=== PATIENT | male | born 1970 | race Caucasian/White ===

== ENCOUNTER → 2024-02-19 08:35 | Outpatient (REF) | payer OTHER, SELFPAY | LOC: RAD 08:35 | PROVIDERS: ATTENDING PHYSICIAN Physician Assistant; FAMILY PHYSICIAN Family Medicine | DX: E83.52 Hypercalcemia (principal); E34.9 Endocrine disorder, unspecified | CPT/HCPCS: 78071; A9500 ==

== ENCOUNTER → 2024-03-01 08:35 | Outpatient (REF) | payer OTHER, SELFPAY | LOC: RAD 08:35 | PROVIDERS: ATTENDING PHYSICIAN Physician Assistant; FAMILY PHYSICIAN Family Medicine | DX: E83.52 Hypercalcemia (principal); E34.9 Endocrine disorder, unspecified | CPT/HCPCS: 76536; 77080; 77081 ==

== ENCOUNTER 2024-04-16 06:07 | Day surgery (SDC) | payer OTHER, SELFPAY ==
[2024-04-12 09:03] LABS: Hematocrit 46.1 % (39.0-52.0); Hemoglobin 15.1 g/dL (13.0-18.0); Mean Corp Hgb Conc. 32.8 g/dL (33.0-37.0); Mean Corpuscular Hgb 30.9 pg (27.0-31.0); Mean Corpuscular Volume 94.5 fL (80.0-94.0); Mean Platelet Volume 10.1 fL (7.4-10.4); Platelet Count 372 10^3/uL (130-400); Red Blood Cell Count 4.88 10^6/uL (4.70-6.10); Red Cell Dist. Width 12.2 % (11.5-14.5); White Blood Cell Count 7.2 10^3/uL (4.8-10.8)
[2024-04-12 09:08] LABS: APTT 28.1 Sec (23.4-35.0); INR 0.93; PT 12.8 Sec (11.4-14.6)
[2024-04-12 09:26] LABS: ALT (SGPT) 36 U/L (0-50); AST (SGOT) 23 U/L (17-59); Albumin 3.9 g/dl (3.5-5.0); Alkaline Phosphatase 83 U/L (38-126); Blood Urea Nitrogen 19 mg/dl (9-20); Calcium 10.1 mg/dl (8.4-10.2); Carbon Dioxide 34 mmol/L (22-30); Chloride 99 mmol/L (98-107); Glucose 199 mg/dl (70-99); Sodium 140 mmol/L (135-145); Total Bilirubin 0.7 mg/dl (0.2-1.3); Total Protein 5.9 g/dl (6.3-8.2); eGFR > 60.00
[2024-04-12 11:00] VITALS: BMI 30.6
[2024-04-16] VITALS (14 sets, daily range): BP systolic 92–163; BP diastolic 59–78; BMI 30.6
[2024-04-16] MEDS: TYLENOL 1000 MG PO (06:53)
[2024-04-16] MEDS: HEPARIN 5000 UNITS SC (06:53)
[2024-04-16] MEDS: NEURONTIN 300 MG PO (06:53)
[2024-04-16 06:55] LABS: Glucose - Point of Care 138 mg/dl (70-99)
[2024-04-16 08:17] LABS: Turbo PTH 211.1 pg/ml (13.6-85.8)
--- NOTE | 2024-04-16 08:53 | OR.RPT ---
Operative Report
Operative Report
Date of Operation: April 16, 2024
Preoperative Diagnosis: �Hyperparathyroidism - E210
Postoperative Diagnosis: Same
Surgeon: Scott Dumont M.D.
Operation: Minimally Invasive Left Inferior Parathyroidectomy - [id number]
Anesthesia: GET
Estimated Blood Loss: 2 cc
Drains: None
Specimen: �Left inferior neck nodule, rule out parathyroid adenoma
Complications: �None
Procedure:
The patient was taken to the operating room and placed in the usual supine position. After adequate general endotracheal anesthesia was established, the patient's neck was extended, prepped, and draped in the typical sterile fashion. A 4 cm
transcervical incision was made two fingerbreadths above the sternal notch. The skin incision was made with the #15 blade, and this was taken through the skin into the subcutaneous tissue. The underlying platysma muscle was divided, and subplatysmal
flaps were created superiorly to the thyroid cartilage and inferiorly to the sternal notch. Strap muscles were identified and at the midline.
The attention was turned to the left side of the neck. The left thyroid lobe was mobilized medially. During this process, the left recurrent laryngeal nerve was identified and preserved throughout the surgery. The left lower neck nodule was
identified and noted to be enlarged, excised, and sent to the pathology department, which showed a hypercellular parathyroid gland. The intraoperative PTH levels normalized.
After obtaining adequate hemostasis, the strap muscles were reapproximated with #3-0 Vicryl in a running fashion. The platysma muscle was reapproximated with #3-0 Vicryl in an interrupted fashion, and the skin was approximated with #4-0 Monocryl in
a running subcuticular fashion. The Steri-Strips and sterile dressings were placed. The patient tolerated the procedure well. The final instrument, needle, and sponge counts were correct. The patient was extubated and transferred to the PACU.
[2024-04-16 09:09] LABS: Turbo PTH 28.2 pg/ml (13.6-85.8)
[2024-04-16 09:24] LABS: Glucose - Point of Care 108 mg/dl (70-99)
== END 2024-04-16 12:00 | disposition home or self-care (01) ==
LOC: SDS 06:07
PROVIDERS: ATTENDING PHYSICIAN Surgery; FAMILY PHYSICIAN Family Medicine; OTHER PHYSICIAN Physician Assistant
DX: D35.1 Benign neoplasm of parathyroid gland (principal); E21.0 Primary hyperparathyroidism
CPT/HCPCS: 60500; 88305; 88332; 36415; 80053; 82962; 83970; 85027; 85610; 85730; 88331; C1776

== ENCOUNTER → 2024-06-21 06:39 | Outpatient (REF) | payer BC, SELFPAY ==
[2024-06-21 07:05] LABS: Ionized Calcium 1.21 mMOL/L (1.15-1.33)
[2024-06-21 07:27] LABS: ALT (SGPT) 42 U/L (0-50); AST (SGOT) 27 U/L (17-59); Albumin 4.1 g/dl (3.5-5.0); Alkaline Phosphatase 107 U/L (38-126); Blood Urea Nitrogen 18 mg/dl (9-20); Calcium 9.2 mg/dl (8.4-10.2); Carbon Dioxide 29 mmol/L (22-30); Chloride 104 mmol/L (98-107); Glucose 139 mg/dl (70-99); Potassium 4.4 mmol/L (3.5-5.1); Sodium 140 mmol/L (135-145); Total Bilirubin 0.6 mg/dl (0.2-1.3); Total Protein 6.3 g/dl (6.3-8.2); eGFR > 60.00
[2024-06-21 07:56] LABS: TSH 3.07 uIU/ml (0.47-4.68)
== END ==
LOC: REG 06:39
PROVIDERS: ATTENDING PHYSICIAN Physician Assistant; FAMILY PHYSICIAN Family Medicine
DX: E21.0 Primary hyperparathyroidism (principal); E10.65 Type 1 diabetes mellitus with hyperglycemia
CPT/HCPCS: 36415; 80053; 82330; 83970; 84443

== ENCOUNTER → 2024-09-11 14:42 | Outpatient (REF) | payer BC, SELFPAY | LOC: RCS 14:42 | PROVIDERS: ATTENDING PHYSICIAN Student in an Organized Health Care Education/Training Program; FAMILY PHYSICIAN Family Medicine | DX: I25.10 Atherosclerotic heart disease of native coronary artery without angina pectoris (principal); R06.09 Other forms of dyspnea | CPT/HCPCS: 93306 ==

== ENCOUNTER → 2024-11-01 07:06 | Outpatient (REF) | payer BC, SELFPAY ==
[2024-11-01 08:09] LABS: Ionized Calcium 1.22 mMOL/L (1.15-1.33)
[2024-11-01 08:16] LABS: % Basophils 0.9 % (0-2); % Immature Granulocytes 0.1 % (0-0.5); % Lymphocytes 23.4 % (20.5-51.1); % Monocytes 8.5 % (1.7-9.3); % Neutrophils 65.1 % (42.2-75.2); Absolute Basophils 0.1 10^3/uL (0-0.2); Absolute Eosinophils 0.1 10^3/uL (0-0.7); Absolute Lymphocytes 1.6 10^3/uL (1.2-3.4); Absolute Monocytes 0.6 10^3/uL (0.1-0.6); Absolute Neutrophils 4.5 10^3/uL (1.4-6.5); Hematocrit 44.2 % (39.0-52.0); Hemoglobin 15.2 g/dL (13.0-18.0); Mean Corp Hgb Conc. 34.4 g/dL (33.0-37.0); Mean Platelet Volume 9.8 fL (7.4-10.4); Nucleated Red Blood Cells % 0 % (-); Platelet Count 329 10^3/uL (130-400); Red Blood Cell Count 4.91 10^6/uL (4.70-6.10); Red Cell Dist. Width 12.5 % (11.5-14.5); White Blood Cell Count 6.9 10^3/uL (4.8-10.8)
[2024-11-01 08:43] LABS: Urine Protein < 5 mg/dl
[2024-11-01 08:44] LABS: Microalbumin, Random Urine <0.6 mg/dl (0.6-1.7)
[2024-11-01 08:52] LABS: ALT (SGPT) 34 U/L (0-50); AST (SGOT) 24 U/L (17-59); Albumin 4.3 g/dl (3.5-5.0); Alkaline Phosphatase 87 U/L (38-126); Blood Urea Nitrogen 20 mg/dl (9-20); Calcium 9.6 mg/dl (8.4-10.2); Carbon Dioxide 31 mmol/L (22-30); Chloride 107 mmol/L (98-107); Glucose 106 mg/dl (70-99); HDL Cholesterol 44 mg/dl; LDL Cholesterol, Calculated 52 mg/dl; Potassium 4.6 mmol/L (3.5-5.1); Sodium 142 mmol/L (135-145); Total Bilirubin 0.9 mg/dl (0.2-1.3); Total Cholesterol 112 mg/dl (50-199); Total Protein 6.7 g/dl (6.3-8.2); Triglyceride 82 mg/dl (10-149); Very Low Density Lipoprotein 16 mg/dl (0-30); eGFR > 60.00
[2024-11-01 09:09] LABS: Vitamin D, 25-OH*** 49.2 ng/mL (30-80)
[2024-11-01 09:46] LABS: Glycohemoglobin (HgbA1c) 6.5 % (4.0-5.6)
[2024-11-02 10:41] LABS: Intact PTH 55.6 pg/ml (13.6-85.8)
[2024-11-03 18:04] LABS: Apolipoprotein B 53 mg/dL (66-133)
[2024-11-03 23:42] LABS: IgA 141 mg/dl (70-400)
== END ==
LOC: REG 07:06
PROVIDERS: ATTENDING PHYSICIAN Physician Assistant; FAMILY PHYSICIAN Family Medicine
DX: E10.65 Type 1 diabetes mellitus with hyperglycemia (principal); E21.0 Primary hyperparathyroidism; E55.9 Vitamin D deficiency, unspecified; E78.5 Hyperlipidemia, unspecified
CPT/HCPCS: 36415; 80053; 80061; 82043; 82172; 82306; 82330; 82570; 82784; 83036; 83516; 83970; 84156; 84443; 85025; 86231

== ENCOUNTER → 2025-04-22 06:42 | Outpatient (REF) | payer BC, SELFPAY ==
[2025-04-22 07:08] LABS: Hematocrit 43.1 % (39.0-52.0); Hemoglobin 14.5 g/dL (13.0-18.0); Mean Corp Hgb Conc. 33.6 g/dL (33.0-37.0); Mean Corpuscular Volume 90.0 fL (80.0-94.0); Nucleated Red Blood Cells % 0 % (-); Platelet Count 316 10^3/uL (130-400); Red Cell Dist. Width 12.3 % (11.5-14.5)
[2025-04-22 08:23] LABS: ALT (SGPT) 38 U/L (0-50); AST (SGOT) 25 U/L (17-59); Albumin 4.1 g/dl (3.5-5.0); Alkaline Phosphatase 87 U/L (38-126); Blood Urea Nitrogen 20 mg/dl (9-20); Calcium 9.4 mg/dl (8.4-10.2); Carbon Dioxide 32 mmol/L (22-30); Chloride 102 mmol/L (98-107); Glucose 127 mg/dl (70-99); Potassium 4.7 mmol/L (3.5-5.1); Sodium 137 mmol/L (135-145); Total Protein 6.3 g/dl (6.3-8.2); eGFR > 60.00
[2025-04-22 10:06] LABS: Glycohemoglobin (HgbA1c) 6.7 % (4.0-5.9)
== END ==
LOC: REG 06:42
PROVIDERS: ATTENDING PHYSICIAN Physician Assistant; FAMILY PHYSICIAN Family Medicine
DX: E10.65 Type 1 diabetes mellitus with hyperglycemia (principal); E83.52 Hypercalcemia
CPT/HCPCS: 36415; 80053; 82330; 83036; 85025

== ENCOUNTER → 2025-04-23 07:52 | Outpatient (REF) | payer BC, SELFPAY ==
[2025-04-23 09:17] LABS: 24 Hour Urine Total Volume 2200 ml
== END ==
LOC: REG 07:52
PROVIDERS: ATTENDING PHYSICIAN Physician Assistant; FAMILY PHYSICIAN Family Medicine
DX: E83.52 Hypercalcemia (principal)
CPT/HCPCS: 81050; 82340; 82570